=== PATIENT | male | born 2000 | race Caucasian/White ===

== ENCOUNTER 2024-05-24 09:50 | Emergency (ER) | payer OTHER ==
[2024-05-24 10:09] VITALS: BP 118/72; PULSE 80; RESP 16; TEMP 98.3; BMI 20.3
[2024-05-24] MEDS ORDERED: KETOROLAC TROMETHAMINE 30 MG/1 ML VIAL ONE (11:23)
[2024-05-24] MEDS ORDERED: METHOCARBAMOL 500 MG TABLET ONE (11:23)
[2024-05-24] MEDS: METHOCARBAMOL 500 MG TABLET PO ONE (11:28)
[2024-05-24] MEDS: KETOROLAC TROMETHAMINE 30 MG/1 ML VIAL IM ONE (11:28)
[2024-05-24 12:43] LABS: HIV INTERPRETATION NEGATIVE (NEGATIVE)
== END 2024-05-24 13:02 | disposition home or self-care (01) ==
LOC: JERFT 09:50
PROC: 3E0133Z Introduction of Anti-inflammatory into Subcutaneous Tissue, Percutaneous Approach (ICD-10-PCS; principal; 2024-05-24)
DX: S39.012A Strain of muscle, fascia and tendon of lower back, initial encounter (principal); X50.1XXA Overexertion from prolonged static or awkward postures, initial encounter; Y99.0 Civilian activity done for income or pay
CPT/HCPCS: 36415; 72100-TC-FY; 72170-TC-FY; 86803; 87389; 99284-25